=== PATIENT | male | born 1940 | race Caucasian/White ===

== ENCOUNTER 2016-07-17 10:49 | Emergency (ER) | payer OTHER ==
[~2016-07-17] VITALS: Ht 172.7 cm; Wt 83.0 kg
[~2016-07-17 10:49] MED LIST: ACETAMINOPHEN500 M4 PO; ALBUTEROL2.5 MG/3 M INH/SOL; AMBIEN5 M1 PO; AMIODARONE HCL200 M1 PO; AMIODARONE HCL200 MG PO; ASPIR 8181 MG PO; AZITHROMYCIN250 M1 PO; COLCHICINE0.6 M2 PO; COUMADIN1 M1 PO; CYCLOBENZAPRINE10 M1 PO; DIGOXIN0.25 MG PO; DIGOXIN250 MCG; ELIQUIS5 M1 PO; FOLBIC 2 MG-2.51 TAB PO; FOLIC ACID1 M1 PO; FUROSEMIDE20 MG PO; GEMFIBROZIL600 M1 PO; GEMFIBROZIL600 MG PO; HEPARIN-1/25000 UNI1 IV; INCRUSE ELLI62.5 MCG PO; KEFLEX500 MG PO; LANTUS SOL100 UNIT/1 SC; LANTUS SOLOS100 U/ML SC; LANTUS100 U/ML SC; LANTUS100 UNIT/1 SC; LASIX20 M1 PO; LASIX40 M1 PO; LEVEMIR100 UNIT/1 SC; LIDODERM1 EACH EXT; LOSARTAN POTASS50 M1; LOSARTAN POTASS50 MG PO; MAGNESIUM400 M1 PO; MELATONIN5 M1 PO; METFORMIN HCL500 M3 PO; METFORMIN500 MG PO; METHOTREXATE2.5 M1 PO; METHOTREXATE2.5 M2 PO; METOPROLOL SUC100 M2 PO; METOPROLOL SUCC50 MG PO; MEXILETINE HCL150 M1 PO; MEXILETINE HCL200 MG PO; MULTIVITAMIN1 TAB PO; NOVOLOG100 UNIT/1 SC; NOVOLOG100 UNIT/2 SC; OMEPRAZOLE40 MG PO; ONE DAILY MULT1 EAC2 PO; OXYCODONE HCL10 M2 PO; OXYCODONE HCL5 M1 PO; PERCOCET 325 MG1 TA2 PO; PIOGLITAZONE30 MG PO; POTASSIUM CHLO20 ME2 PO; PRADAXA150 M1 PO; PRAVACHOL20 M2 PO; PREDNISONE10 M2 PO; PREDNISONE2.5 M1 PO; PREDNISONE5 M1 PO; PROAIR HFA8.5 GM INH; SENNA8.6 M3 PO; SOLU-MEDRO40 MG/1 ML IV; SPIRONOLACTONE25 MG PO; TOPROL XL25 M1 PO; TRAMADOL HCL50 M1 PO; TYLENOL325 M1 PO; VALIUM5 M1 PO; VITAMIN B-1100 MG PO; VITAMIN D250000 UNIT PO; VITAMIN D350000 UNIT PO; WARFARIN SODIUM2 MG PO; ZITHROMAX250 M2 PO; ZOLPIDEM TARTRAT5 M1 PO
[2016-07-17 11:58] LABS: ABSOLUTE BASOPHIL COUNT 0 /CUMM (0.0-0.2); ABSOLUTE EOSINOPHIL COUNT 0 /CUMM (0.0-0.7); ABSOLUTE LYMPH COUNT 0.8 /CUMM (1.2-3.4); ABSOLUTE MONOCYTE COUNT 0.6 /CUMM (0.10-0.60); BASOPHIL % 0.8 % (0.0-2.0); EOSINOPHIL % 0.2 % (0-5); GRANULOCYTE % 56.6 % (42.2-75.2); HEMATOCRIT 33.9 % (42-52); MEAN CORPUSCULAR HGB 27.8 PG (27.0-31.0); MEAN CORPUSCULAR HGB CONC 33.7 G/DL (33.0-37.0); MEAN CORPUSCULAR VOLUME 82.6 FL (80.0-94.0); MEAN PLATELET VOLUME 7.9 FL (7.4-10.4); PLATELET COUNT 153 /CUMM (130-400); RBC DISTRIBUTION WIDTH 16.9 % (11.5-14.5); RED BLOOD CELL CT 4.11 /CUMM (4.70-6.10); WHITE BLOOD CELL COUNT 3.5 /CUMM (4.8-10.8)
[2016-07-17] MEDS ORDERED: SPIRONOLACTONE25 M1 PO (12:06)
[2016-07-17] MEDS ORDERED: BUMETANIDE2 M1 PO (12:08)
[2016-07-17] MEDS ORDERED: LISINOPRIL5 M1 PO (12:08)
[2016-07-17] MEDS ORDERED: PRADAXA150 M1 PO (12:10)
--- NOTE | 2016-07-17 12:33 | RADIOLOGY REPORT ---
EXAMINATION: XR PORTABLE CHEST CLINICAL INFORMATION: Shortness of breath, coughing, wheezing and rales. COMPARISON: 02/26/2016 TECHNIQUE: Portable AP view of the chest was obtained. FINDINGS: No acute abnormalities compared to 02/26/2016. Again noted is the enlarged cardiac silhouette and prominent central central pulmonary arteries; no acute pulmonary edema, focal consolidation or pleural effusion. Thoracic aorta is calcified. The pacing/defibrillator leads and pads remain in stable position. No acute skeletal findings. IMPRESSION: 1. No evidence of pneumonia. 2. Cardiomegaly and chronically enlarged pulmonary arteries, as may be seen in pulmonary arterial hypertension.
--- NOTE | 2016-07-17 14:07 | ED GENERAL ADULT ---
History of Present Illness General Chief Complaint: General Adult Stated Complaint: SENT BY CHF CLINIC FOR EVAL LOW BP Source: patient, family, old records, EMS Exam Limitations: no limitations Vital Signs & Intake/Output Vital Signs & Intake/Output Vital Signs Date Time Temp Pulse Resp B/P Pulse O2 O2 Flow FiO2 Ox Delivery Rate 07/17 1446 98.1 78 18 101/64 94 07/17 1210 76 94/59 07/17 1200 94 Room Air 07/17 1149 94 07/17 1059 96.6 79 20 104/60 94 Room Air Room Air Allergies Coded Allergies: morphine (UNKNOWN 02/12/16) Reconcile Medications Albuterol Sulfate (Proair Hfa) 8.5 GM HFA.AER.AD 2 PUF INH Q4H PRN RESPIRATORY (Reported) Albuterol Sulfate 2.5 MG/3 ML VIAL.NEB 1 Vial INH/ALESSIA Q4P PRN BREATHING PROBLEMS (Reported) Amiodarone HCl 200 MG TABLET 1 TAB PO DAILY ARRYTHMIA (Reported) Bumetanide 2 MG TABLET 1 TAB PO BID WATER PILL (Reported) Dabigatran Etexilate Mesylate (Pradaxa 150 MG) 150 MG CAPSULE 1 CAP PO BID BLOOD THINNER (Reported) Ergocalciferol (Vitamin D2) (Vitamin D2) 50,000 UNIT CAPSULE 50,000 IU PO MONTHLY SUPPLEMENT due 03/07/2016Reason to Stop at ADM: Folic Acid 1 MG TABLET 1 TAB PO DAILY SUPPLEMENT (Reported) Furosemide (Lasix) 40 MG TABLET 60 MG PO BID CHF Reason to Stop at ADM: change to IV Gemfibrozil 600 MG TABLET 1 TAB PO BID CHOLESTEROL (Reported) Insulin Aspart (Novolog) 100 UNIT/1 ML VIAL 0 UNITS SC TIDAC/HS Diabetes Blood Sugar Units Bedtime Units Less than 80mg/dl 80-100 mg/dl 3 101-120 mg/dl 3 121-150 mg/dl 3 151-200 mg/dl 4 201-250 mg/dl 5 251-300 mg/dl 6 2 301-350 mg/dl 7 3 351-400 8 4 >400 10 Units Call 5 Units and Call Insulin Glargine,Hum.rec.anlog (Lantus Solostar) 100 UNIT/1 ML INSULN.PEN 12 UNIT SC QPM DIABETES (Reported) Lisinopril 5 MG TABLET 1 TAB PO DAILY HEART (Reported) Magnesium Oxide (Magnesium) 400 MG CAPSULE 1 CAP PO BID SUPPLEMENTS (Reported ) Metoprolol Succ XL (Toprol XL) 25 MG TAB 1 TAB PO DAILY AFIB (Reported) Mexiletine HCl 150 MG CAPSULE 1 TAB PO TID HEART (Reported) Potassium Chloride 20 MEQ TAB.ER.PRT 1 TAB PO BID SUPPLEMENT (Reported) Pravastatin Sodium (Pravachol) 20 MG TABLET 1 TAB PO DAILY CHOLESTEROL ( Reported) Prednisone 20 MG TABLET 1 TAB PO BID bronchospasm Prednisone 5 MG TABLET 1 TAB PO QAM RHEUMATOID ARTHRITIS START ONCE PREDNISONE TAPER HAS FINISHED Prednisone 2.5 MG TABLET 1 TAB PO QPM RHEUMATOID ARTHRITIS Spironolactone 25 MG TABLET 1 TAB PO DAILY UN KNOWN (Reported) Umeclidinium [place] (Incruse Ellipta) 62.5 MCG BLST.W.DEV 1 SPRAY PO DAILY BREATHING PROBLEMS (Reported) Zolpidem Tartrate 5 MG TABLET 1 TAB PO QPM SLEEP (Reported) Core Measure Meds Pre-Hospital pradaxa Triage Note: PT TO CHF CLINIC TODAY "GOES EVERY 2 WEEKS", SENT OVER TO ED FOR COUGH, CONGESTION, WHEEZING, DENIES FEVER AT HOME. Triage Nurses Notes Reviewed? yes Onset: 2 days Duration: day(s):, constant, continues in ED Timing: recent history Severity: mild No Modifying Factors: none Associated Symptoms: cough HPI: Spouse was ill with nausea vomiting flulike symptoms last week. 2 days prior to admission he developed nonproductive cough increased wheezing malaise. The morning of admission he had an episode of loose watery stool. Prior to admission at CHF clinic he was found to be hypotensive without symptomatology. He denies fever chills nausea vomiting chest pain shortness of breath headache dysuria rash bleeding. Past History Travel History Traveled to [place] past 21 day No Medical History Any Pertinent Medical History? 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 No Review of Systems Review of Systems Constitutional: Reports: no symptoms. EENTM: Reports: nasal congestion. Respiratory: Reports: see HPI, cough. Cardiovascular: Reports: no symptoms. GI: Reports: see HPI, diarrhea. Genitourinary: Reports: no symptoms. Musculoskeletal: Reports: no symptoms. Skin: Reports: no symptoms. Neurological/Psychological: Reports: no symptoms. Hematologic/Endocrine: Reports: no symptoms. Immunologic/Allergic: Reports: no symptoms. All Other Systems: Reviewed and Negative Physical Exam Physical Exam General Appearance: well developed/nourished, alert, awake, mild distress, obese Head: atraumatic, normal appearance Eyes: Bilateral: normal appearance, PERRL, EOMI. Ears, Nose, Throat: normal pharynx, normal ENT inspection, dry mucous membranes Neck: normal inspection, supple, full range of motion Respiratory: chest non-tender, no respiratory distress, quiet respiration, wheezing, rales Cardiovascular: regular rate/rhythm, normal peripheral pulses, norml femoral pulses equa Peripheral Pulses: 4+ carotid (R), 4+ carotid (L) Gastrointestinal: normal bowel sounds, soft, non-tender, no organomegaly Back: normal inspection, normal range of motion Extremities: normal inspection, normal capillary refill, normal range of motion, pedal edema (trace) Neurologic/Psych: no motor/sensory deficits, awake, alert, oriented x 3 Reflexes: 2+: bicep (R), bicep (L). Skin: intact, normal color, warm/dry Lymphatic: no anterior cervical fredy Core Measures ACS in differential dx? Yes ASA ordered for poss ACS? No-other contraindication CVA/TIA Diagnosis: No Severe Sepsis Present: No Septic Shock Present: No Progress Differential Diagnoses I considered the following diagnoses in my evaluation of the patient: Myocardial ischemia COPD pneumonia CHF dehydration Plan of Care: Orders Procedure Date/time Status Heart Healthy Diet 07/17 L Active MISTAKE 07/17 1129 Active TROPONIN LEVEL 07/17 1129 Complete MAGNESIUM 07/17 112 Complete COMPREHENSIVE METABOLIC PANEL 07/17 1129 Complete CBC WITHOUT DIFFERENTIAL 07/17 112 Complete B-TYPE NATRIURETIC PEP (BNP) 07/17 112 Complete EKG 07/17 1050 Active Laboratory Tests 07/17/16 1233: Anion Gap 11, Estimated GFR 59 L, BUN/Creatinine Ratio 20.8, Glucose 90, Calcium 7.9 L, Magnesium 2.2, Total Bilirubin 0.5, AST 28, ALT 31, Alkaline Phosphatase 63, Troponin I 0.02, Vgo-A-Teyuxbukojp Pept 2990 H, Total Protein 6.3, Albumin 3.4 L, Globulin 2.9, Albumin/Globulin Ratio 1.2 07/17/16 1145: CBC w Diff NO MAN DIFF REQ, RBC 4.11 L, MCV 82.6, MCH 27.8, RDW 16.9 H, MPV 7.9, Gran % 56.6, Lymphocytes % 24.3, Monocytes % 18.1 H, Eosinophils % 0.2, Basophils % 0.8, Absolute Granulocytes 2.0, Absolute Lymphocytes 0.8 L, Absolute Monocytes 0.6, Absolute Eosinophils 0, Absolute Basophils 0, PUBS MCHC 33.7 Diagnostic Imaging: Viewed by Me: Radiology Read. Discussed w/RAD: Radiology Read. CXR Impression: no acute abnormality Initial ED EKG: AFIB, pacemaker rhythm Prior EKG: changed Rhythm Strip: paced Departure Departure Time of Disposition: 1440 Disposition: HOME OR SELF CARE Condition: Stable Clinical Impression Primary Impression: Bronchitis, acute, with bronchospasm Secondary Impressions: Diarrhea Qualifiers: Diarrhea type: unspecified type Qualified Code: R19.7 - Diarrhea, unspecified Referrals: NESSA GONZALES,MARIELOS Charles (PCP/Family) Additional Instructions: Use your nebulizer 4 times a day for the next few days until feeling better. Departure Forms: Customer Survey General Discharge Information Prescriptions: Current Visit Scripts Prednisone 1 TAB PO BID #10 TAB Critical Care Note Critical Care Note Critical Care Time: non-applicable
[2016-07-17] MEDS ORDERED: PREDNISONE20 M1 PO (14:40)
[2016-07-17 14:46] VITALS: BP 101/64
== END 2016-07-17 14:51 ==
LOC: ERH 10:49
PROVIDERS: Emergency Medicine
DX: J20.9 Acute bronchitis, unspecified (principal); Z87.891 Personal history of nicotine dependence; R19.7 Diarrhea, unspecified
CPT/HCPCS: 1263; 93005; 93010; 96374; J2930

== ENCOUNTER 2017-11-19 11:04 | Emergency (ER) | payer OTHER ==
[~2017-11-19] VITALS: Ht 172.7 cm; Wt 91.6 kg
[~2017-11-19 11:04] MED LIST changes: +AMOXICILLIN500 M3 PO; +BUMETANIDE2 M1 PO; +LISINOPRIL5 M1 PO; +PREDNISONE20 M1 PO; +PROLIA60 MG/1 ML INJ; +SPIRONOLACTONE25 M1 PO
[2017-11-19 11:19] VITALS: BP 132/79
--- NOTE | 2017-11-19 11:59 | ED SKIN/ALLERGY COMPLAINT ---
History of Present Illness General Chief Complaint: Upper Extremity Injury Stated Complaint: BAD LEFT ARM SCRAPE Source: patient Exam Limitations: no limitations Vital Signs & Intake/Output Vital Signs & Intake/Output Vital Signs Date Time Temp Pulse Resp B/P B/P Pulse O2 O2 Flow FiO2 Mean Ox Delivery Rate 11/19 1119 97.0 77 20 132/79 95 Room Air Allergies Coded Allergies: morphine (UNKNOWN 02/12/16) Reconcile Medications Albuterol Sulfate (Proair Hfa) 8.5 GM HFA.AER.AD 2 PUF INH Q4H PRN RESPIRATORY (Reported) Albuterol Sulfate 2.5 MG/3 ML VIAL.NEB 1 Vial INH/ALESSIA Q4P RESP. (Reported) Amiodarone (Cordarone) 200 MG TABLET 1 TAB PO DAILY ARRYTHMIA (Reported) Amoxicillin 500 MG TABLET 1 TAB PO TID INFECTION Please take one tab every 8 hours until 04/19/2017 Bumetanide 2 MG TABLET 1 TAB PO BID WATER PILL (Reported) Dabigatran Etexilate Mesylate (Pradaxa 150 MG) 150 MG CAPSULE 1 CAP PO BID BLOOD THINNER (Reported) Denosumab (Prolia) 60 MG/ML SYRINGE 60 MG INJ AD OSTEOPOROSIS (Reported) Ergocalciferol (Vitamin D2) (Vitamin D2) 50,000 UNIT CAPSULE 50,000 IU PO MONTHLY SUPPLEMENT due 03/07/2016Reason to Stop at ADM: Folic Acid 1 MG TABLET 1 TAB PO DAILY SUPPLEMENT (Reported) Gemfibrozil 600 MG TABLET 1 TAB PO BID CHOLESTEROL (Reported) Insulin Aspart (Novolog) 100 UNIT/ML VIAL DM (Reported) Insulin Glargine,Hum.rec.anlog (Lantus Solostar) 100 UNIT/1 ML INSULN.PEN 12 UNIT SC QPM DIABETES (Reported) Lisinopril 5 MG TABLET 1 TAB PO DAILY HTN (Reported) Magnesium Oxide (Magnesium) 400 MG CAPSULE 1 CAP PO BID SUPPLEMENTS (Reported ) Metoprolol Succ XL (Toprol XL) 25 MG TAB 12.5 MG PO DAILY afib please take half tab dose daily and follow with cardilogy Mexiletine HCl 150 MG CAPSULE 1 TAB PO Q8H HEART (Reported) Pravastatin Sodium (Pravachol) 20 MG TABLET 1 TAB PO DAILY CHOLESTEROL ( Reported) Prednisone 5 MG TABLET 1 TAB PO QAM RA (Reported) Prednisone 2.5 MG TABLET 1 TAB PO QPM RHEUMATOID ARTHRITIS Tramadol HCl 50 MG TABLET 1 TAB PO Q4-6H PAIN (Reported) Umeclidinium [place] (Incruse Ellipta) 62.5 MCG BLST.W.DEV 1 SPRAY PO DAILY BREATHING PROBLEMS (Reported) Zolpidem Tartrate 5 MG TABLET 1 TAB PO QPM SLEEP (Reported) Triage Note: PT STATES RIGHT SKIN TEAR FROM SCREEN DOOR. BLEEDING CONTROLLED. UNKNOWN LAST TD. PT STATES HE IS IN PREDAXA. Triage Nurses Notes Reviewed? yes Onset: Abrupt Duration: day(s): (1), constant, continues in ED Timing: single episode today Severity: mild, moderate Severity Numbers: 5 Location: extremities Possible Factors: abrasion/skin tear No Modifying Factors: none HPI: 77-year-old male past medical history of a fibrillation, hypertension, diabetes presents for evaluation of a skin tear to his right upper arm. Patient reports that he scraped his arm against a screen door earlier today causing a skin tear. He denies any other injuries. No problems with range of motion no numbness or tingling. He is on Pradaxa but his bleeding has been controlled. He is unsure of his tetanus status. No numbness or tingling he feels well otherwise. (Henrik Palmer) Past History Travel History Traveled to [place] past 21 day No Medical History Any Pertinent Medical History? 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 No (Henrik Palmer) Review of Systems Review of Systems Constitutional: Reports: no symptoms. EENTM: Reports: no symptoms. Respiratory: Reports: no symptoms. Cardiovascular: Reports: no symptoms. GI: Reports: no symptoms. Genitourinary: Reports: no symptoms. Musculoskeletal: Reports: no symptoms. Skin: Reports: see HPI (abrasion). Neurological/Psychological: Reports: no symptoms. Hematologic/Endocrine: Reports: no symptoms. Immunologic/Allergic: Reports: no symptoms. All Other Systems: Reviewed and Negative (Henrik Palmer) Physical Exam Physical Exam General Appearance: well developed/nourished, no apparent distress, alert, awake Head: atraumatic, normal appearance Eyes: Bilateral: normal appearance, EOMI. Ears, Nose, Throat: hearing grossly normal Neck: normal inspection, supple, full range of motion Respiratory: no respiratory distress Peripheral Pulses: 2+ radial (R), 2+ radial (L) Back: normal inspection, normal range of motion Extremities: normal inspection, normal range of motion, no edema Neurologic/Psych: no motor/sensory deficits, awake, alert, oriented x 3, normal gait Skin: intact, normal color, warm/dry Skin Problem Location: upper extremities Skin Problem Character: there is a 3 cm linear skin tear located on the rt upper arm no active bleeding. No swelling full range motion intact (Henrik Palmer) Progress Differential Diagnosis: skin tear abrasion, laceration Plan of Care: Patient is here with a skin tear. He is on blood thinners but please controlled. Tetanus was updated. Surgicel and sterile dressing applied. Discussed with patient about wound care procedures. Discussed return precautions case discussed Dr. Damian he agrees. (Henrik Palmer) Departure Departure Disposition: HOME OR SELF CARE Condition: Stable Clinical Impression Primary Impression: Abrasion Referrals: [place] GONZALES,Lucien Charles (PCP/Family) Additional Instructions: KEEP THE AREA CLEAN AND DRY. Change dressing once daily. [place] for signs of infection like redness swelling discharge or pain. Make a follow-up with her primary care doctor for a wound check in a few days. Monitor symptoms return with any concerns. Departure Forms: Customer Survey General Discharge Information (Henrik Palmer) PA/POULTRY EVISCERATOR Co-Sign Statement Statement: ED Attending supervision documentation- [] I saw and evaluated the patient. I have also reviewed all the pertinent lab results and diagnostic results. I agree with the findings and the plan of care as documented in the PA's/POULTRY EVISCERATOR's documentation. [X] I have reviewed the ED Record and agree with the PA's/POULTRY EVISCERATOR's documentation. [] Additions or exceptions (if any) to the PAs/POULTRY EVISCERATOR's note and plan are summarized below: [] (Rickie GONZALES,Hai Chu)
== END 2017-11-19 12:10 ==
LOC: ERH 11:04
DX: S40.811A Abrasion of right upper arm, initial encounter (principal); W22.8XXA Striking against or struck by other objects, initial encounter; Y92.9 Unspecified place or not applicable; Y93.9 Activity, unspecified
CPT/HCPCS: 90471; 90714

== ENCOUNTER → 2018-01-26 | Day surgery (SDC) | payer OTHER ==
[~2018-01-26] VITALS: Ht 172.7 cm; Wt 94.8 kg
[~2018-01-26] MED LIST changes: +DOXYCYCLINE HY100 M2 PO; +GABAPENTIN100 M2 PO; +HYDROCODON-ACE1 EAC2 PO; +KLOR-CON 1010 ME1 PO
--- NOTE | 2018-01-26 14:38 | Operative Report ---
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 After discussion of risks, benefits, and alternatives with patient and his including possibility of pain scarring swelling infection delayed healing recurrence numbness bleeding need for further surgery and loss of limb or life informed consent was obtained for planned staged operative treatment of his right fourth toe wound. After identifying the correct operative site patient was transported to the operating room placed on table in supine position. Prophylactic intravenous antibiotics were provided and following IV sedation local anesthesia was obtained about the right foot utilizing 20 mL's of 0.5% Marcaine plain. Right foot was then scrubbed prepped and draped in the usual aseptic fashion with a Betadine prep. Attention was then directed to the right fourth toe where full thickness wound was noted to be present at the level of proximal interphalangeal joint communicating with the underlying joint structures. Right fourth toe was grasped with a towel clip and sharply disarticulated at the level of metatarsophalangeal joint at this time with resected meatuses passed from the operative field for pathologic evaluation. The exposed portion of the distal fourth metatarsal was then incised and transected with the sagittal saw with the resected fragment freed and passed from the operative field for pathology to represent a clean margin. Surgical site was then copiously irrigated with sterile normal saline via pulse lavage. Upon completion of lavage outer close were changed and the foot was arranged on a clean sterile field. Hemostasis was deemed satisfactory and the wound margins were advanced and sutured together utilizing 4-0 nylon suture material. Incision was dressed with Xeroform gauze followed outpatient gauze 4 x 4's and a roll bandage with an Vijay wrap as an outer layer. Patient tolerated procedure well without apparent complication. Findings: Open wound right fourth toe Discharge Disposition: PACU
== END ==
LOC: STS 04:07
DX: E11.621 Type 2 diabetes mellitus with foot ulcer (principal); L97.514 Non-pressure chronic ulcer of other part of right foot with necrosis of bone; M86.171 Other acute osteomyelitis, right ankle and foot; Z79.4 Long term (current) use of insulin; I50.22 Chronic systolic (congestive) heart failure; I11.0 Hypertensive heart disease with heart failure; I48.2 Chronic atrial fibrillation; R60.0 Localized edema; Z95.810 Presence of automatic (implantable) cardiac defibrillator
CPT/HCPCS: J0690; J2250; J3490